=== PATIENT | male | born 1970 | race African-American/Black ===

== ENCOUNTER 2016-05-14 19:52 | Emergency (ER) | payer MEDICARE, MEDICAID ==
[2016-05-14] MEDS ORDERED: ACETAMINOPHEN 325 MG TABLET PO ONE (20:02)
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
[2016-05-14 21:09] LABS: ABSOLUTE EOSINOPHILS # (AUTO) 0.1 10^3/uL (0.0-0.6); ABSOLUTE LYMPHOCYTES (AUTO) 1.3 10^3/uL (0.5-4.7); ABSOLUTE MONOCYTES (AUTO) 0.2 10^3/uL (0.1-1.4); ABSOLUTE NEUT (AUTO) 1.7 10^3/uL (1.7-8.2); BASOPHILS % (AUTO) 0.8 % (0-2); EOSINOPHILS % (AUTO) 2.2 % (0-6); HEMATOCRIT 47.7 % (37.9-51.0); HEMOGLOBIN 15.9 g/dL (13.5-17.0); LYMPHOCYTES % (AUTO) 40.4 % (13-45); MEAN CORPUSCULAR HGB CONC 33.3 g/dL (32.0-36.0); MEAN CORPUSCULAR VOLUME 90 fl (80-97); MONOCYTES % (AUTO) 6.9 % (3-13); SEGMENTED NEUTROPHILS % (AUTO) 49.7 % (42-78); WHITE BLOOD COUNT 3.3 10^3/uL (4.0-10.5)
[2016-05-14 21:16] LABS: ALANINE AMINOTRANSFERASE 33 U/L (21-72); ALBUMIN 4.9 g/dL (3.5-5.0); ALKALINE PHOSPHATASE 89 U/L (38-126); ANION GAP 16 (5-19); ASPARTATE AMINO TRANSFERASE 34 U/L (17-59); BILIRUBIN,TOTAL 0.8 mg/dL (0.2-1.3); BLOOD UREA NITROGEN 20 mg/dL (7-20); CALCIUM 10.1 mg/dL (8.4-10.2); CARBON DIOXIDE 27 mmol/L (22-30); CHLORIDE 102 mmol/L (98-107); CREATININE RESULT 1.38 mg/dL (0.52-1.25); GLUCOSE 91 mg/dL (75-110); POTASSIUM 3.3 mmol/L (3.6-5.0); SODIUM 145.2 mmol/L (137-145); TOTAL PROTEIN 8.5 g/dL (6.3-8.2)
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
[2016-05-14] MEDS ORDERED: LIDOCAINE 1%/EPINEPHRINE INJ 20 ML VIAL INJ ONE (22:47)
[2016-05-14] MEDS ORDERED: SULFAMETHOXAZOLE/TRIMETHOPRIM 800-160 MG TABLET PO ONE (22:48)
[2016-05-15 00:23] VITALS: BP 107/76
== END 2016-05-15 00:20 | disposition home or self-care (01) ==
LOC: ER 19:52
PROC: 0HQEXZZ Repair Left Lower Arm Skin, External Approach (ICD-10-PCS; principal; 2016-05-14)
DX: S41.112A Laceration without foreign body of left upper arm, initial encounter (principal); D72.819 Decreased white blood cell count, unspecified; X99.1XXA Assault by knife, initial encounter; I10 Essential (primary) hypertension; E78.00 Pure hypercholesterolemia, unspecified; Z88.0 Allergy status to penicillin
CPT/HCPCS: 99283; 36415; 85025; 80053; 73080; 12002; A9270 ×2; J3490

== ENCOUNTER 2018-05-15 11:02 | Emergency (ER) | payer MEDICARE, MEDICAID ==
[2018-05-15 11:28] VITALS: BP 146/100
[2018-05-15] MEDS ORDERED: KETOROLAC TROMETHAMINE 60 MG/2 ML SDV IM ONE (13:13)
--- NOTE | 2018-05-15 13:17 | ER Document Report ---
ED Medical Screen (RME) - General Chief Complaint: Arm Pain Stated Complaint: NECK PAIN Time Seen by Provider: 05/15/18 13:12 Notes: Patient is a 48-year-old male presents to the emergency department complaining of left neck and left shoulder pain. Patient states he has had left neck pain intermittently for the last couple of months. States the pain hurts more when he rotates his head to the left or fully to the right. Patient states he is also noted some pain in his left shoulder. Patient's denying any trauma or injury to either neck or shoulder. States his shoulder is a pinching sensation when he tries to move it. Patient is unable to fully abduct his left shoulder secondary due to pain. Patient's denying any chest pain, tightness, trouble breathing. Past medical history: Hyperlipidemia, hypertension Medications: Zocor, Norvasc Allergies: Penicillin GENERAL: Alert, interacts well. No acute distress. NECK: Full range of motion. Supple. Trachea midline. Patient complains of pain in the left sternocleidomastoid muscle rotating down to his left trapezius muscle. EXTREMITIES: Moves all 4 extremities spontaneously. No edema, normal radial and dorsalis pedis pulses bilaterally. No cyanosis. Patient is unable to fully a bduct his left shoulder. Only able to abduct it to 90 degrees. Patient states there is a pinching sensation when he tries to fully abduct it. BACK: no cervical, thoracic, lumbar midline tenderness. No saddle anesthesia, normal distal neurovascular exam. I have greeted and performed a rapid initial assessment of this patient. A comprehensive ED assessment and evaluation of the patient, analysis of test results and completion of the medical decision making process will be conducted by additional ED providers. TRAVEL OUTSIDE OF THE [place] IN LAST 30 DAYS: No - Related Data Allergies/Adverse Reactions: Penicillins Allergy (Verified 05/15/18 12:46) Past Medical History - Social History Chew tobacco use (# tins/day): No Frequency of alcohol use: Occasional Drug Abuse: None - Past Medical History Cardiac Medical History: Reports: Hx Hypercholesterolemia, Hx Hypertension Pulmonary Medical History: Denies: Hx Tuberculosis Renal/ Medical History: Denies: Hx Peritoneal Dialysis Past Surgical History: Denies: Hx Pacemaker - Immunizations Hx Diphtheria, Pertussis, Tetanus Vaccination: No Physical Exam - Vital signs Vitals: Temp Pulse Resp BP Pulse Ox 98.3 F 50 L 18 146/100 H 97 05/15/18 11:27 05/15/18 11:27 05/15/18 11:27 05/15/18 11:27 05/15/18 11:27 Course - Vital Signs Vital signs: Temp Pulse Resp BP Pulse Ox 98.3 F 50 L 18 146/100 H 97 05/15/18 11:27 05/15/18 11:27 05/15/18 11:27 05/15/18 11:27 05/15/18 11:27
--- NOTE | 2018-05-15 13:20 | EKG REPORT ---
SEVERITY:- OTHERWISE NORMAL ECG - SINUS BRADYCARDIA ST ELEV, PROBABLE NORMAL EARLY REPOL PATTERN : Confirmed by: Benoit Davis MD 15-May-2018 13:19:41
--- NOTE | 2018-05-15 13:45 | RADIOLOGY REPORT (SQ) ---
EXAM DESCRIPTION: SHOULDER LEFT 2 OR MORE VIEWS COMPLETED DATE/TIME: 05/15/2018 1:35 pm REASON FOR STUDY: pain COMPARISON: None. NUMBER OF VIEWS: Three view. TECHNIQUE: Internal rotation, external rotation, and Y view images acquired of the left shoulder. LIMITATIONS: None. FINDINGS: MINERALIZATION: Normal. BONES: No acute fracture or dislocation. No worrisome bone lesions. No significant osteophytes. GLENOHUMERAL JOINT: No significant findings. ACROMIOCLAVICULAR JOINT: No large osteophytes. SOFT TISSUES: No calcifications. VISUALIZED RIBS, SPINE, AND LUNG: No other significant finding. OTHER: No other significant finding. IMPRESSION: NEGATIVE STUDY OF THE LEFT SHOULDER. NO EXPLANATION FOR PAIN. TECHNICAL DOCUMENTATION: JOB ID: [id number] [employer]- All Rights Reserved Reading location - IP/workstation name: [email or web address]
--- NOTE | 2018-05-15 14:35 | ER Document Report ---
HPI - HPI Patient complains to provider of: left shoulder pain Time Seen by Provider: 05/15/18 13:12 Pain Level: 3 Context: Patient is a 48-year-old male presents to the emergency department complaining of left neck and left shoulder pain. Patient states he has had left neck pain intermittently for the last couple of months. States the pain hurts more when he rotates his head to the left or fully to the right. Patient states he is also noted some pain in his left shoulder. Patient's denying any trauma or injury to either neck or shoulder. States his shoulder is a pinching sensation when he tries to move it. Patient is unable to fully abduct his left shoulder secondary due to pain. Patient's denying any chest pain, tightness, trouble breathing. Past medical history: Hyperlipidemia, hypertension Medications: Zocor, Norvasc Allergies: Penicillin - DERM Skin Color: Normal Past Medical History - Social History Smoking Status: Never Smoker Chew tobacco use (# tins/day): No Frequency of alcohol use: Occasional Drug Abuse: None Family History: Reviewed & Not Pertinent Patient has suicidal ideation: No Patient has homicidal ideation: No - Past Medical History Cardiac Medical History: Reports: Hx Hypercholesterolemia, Hx Hypertension Pulmonary Medical History: Denies: Hx Tuberculosis Renal/ Medical History: Denies: Hx Peritoneal Dialysis Past Surgical History: Denies: Hx Pacemaker - Immunizations Hx Diphtheria, Pertussis, Tetanus Vaccination: No Vertical Provider Document - CONSTITUTIONAL Agree With Documented VS: Yes Notes: GENERAL: Alert, interacts well. No acute distress. HEAD: Normocephalic, atraumatic. EYES: Pupils equal, round, and reactive to light. Extraocular movements intact. ENT: Oral mucosa moist, tongue midline. NECK: Full range of motion. Supple. Trachea midline. Patient complains of pain in the left sternocleidomastoid muscle rotating down to his left trapezius muscle. LUNGS: Clear to auscultation bilaterally, no wheezes, rales, or rhonchi. No respiratory distress. HEART: Regular rate and rhythm. No murmur ABDOMEN: Soft, non-tender. Non-distended. Bowel sounds present in all 4 quadran ts. EXTREMITIES: Moves all 4 extremities spontaneously. No edema, normal radial and dorsalis pedis pulses bilaterally. No cyanosis. Patient is unable to fully abduct his left shoulder. Only able to abduct it to 90 degrees. Patient states there is a pinching sensation when he tries to fully abduct it. BACK: no cervical, thoracic, lumbar midline tenderness. No saddle anesthesia, normal distal neurovascular exam. NEUROLOGICAL: Alert and oriented x3. Normal speech. cranial nerves II through XII grossly intact PSYCH: Normal affect, normal mood. SKIN: Warm, dry, normal turgor. - INFECTION CONTROL TRAVEL OUTSIDE OF THE [place] IN LAST 30 DAYS: No Course - Re-evaluation Re-evalutation: 05/15/18 14:32 Patient states after Toradol administration the pain in his left shoulder has somewhat eased. Patient now has more range of motion of the left shoulder. Discussed close follow-up with primary care provider and inevitably an MRI of the left shoulder. Patient voices understanding and is stable for discharge - Vital Signs Vital signs: Temp Pulse Resp BP Pulse Ox 98.3 F 50 L 18 146/100 H 97 05/15/18 11:27 05/15/18 11:27 05/15/18 11:27 05/15/18 11:27 05/15/18 11:27 Discharge - Discharge Clinical Impression: Neck pain on left side Left shoulder pain Qualifiers: Chronicity: acute Qualified Code(s): M25.512 - Pain in left shoulder Condition: Stable Disposition: HOME, SELF-CARE Instructions: Exercise Program for the Shoulder ([facility]), Shoulder Injury ([facility]) Additional Instructions: As we discussed you have been seen and treated in the emergency department for pain in your left shoulder. Your x-rays are negative at this time. Please make sure you follow-up with your primary care provider for an MRI of your shoulder. That will show if you have any injuries to your muscles, tendons, ligaments. Please take [id number] Tylenol or Motrin for your generalized pain. Please return to the emergency room for any other concerning symptoms. Forms: Return to Work Referrals: BIJU BAHENA MD [Primary Care Provider] - Follow up as needed
== END 2018-05-15 15:06 | disposition home or self-care (01) ==
LOC: ER 11:02
DX: M25.512 Pain in left shoulder (principal); M54.2 Cervicalgia; M79.18 Myalgia, other site; I10 Essential (primary) hypertension; E78.5 Hyperlipidemia, unspecified; Z79.899 Other long term (current) drug therapy; Z88.0 Allergy status to penicillin
CPT/HCPCS: 93005; 99283; 96372; 73030; 93010; J1885

== ENCOUNTER 2020-05-15 13:50 | Emergency (ER) | payer MEDICARE ==
[2020-05-15 13:57] VITALS: BP 140/93
[2020-05-15] MEDS ORDERED: KETOROLAC TROMETHAMINE 60 MG/2 ML SDV IM ONE (14:13)
--- NOTE | 2020-05-15 14:13 | ER Document Report ---
ED Extremity Problem, Upper - General Chief Complaint: Shoulder Pain Stated Complaint: RIGHT SHOULDER PAIN Time Seen by Provider: 05/15/20 14:13 Primary Care Provider: BIJU BAHENA MD [Primary Care Provider] - Follow up as needed Notes: CHIEF COMPLAINT: Chronic right shoulder pain HPI: 50-year-old male presenting with chronic right shoulder pain for many years, worse over the last month. No new trauma. No chest pain shortness of breath. Had an appointment today with a shoulder specialist but missed his appointment so now presents to the emergency department. Pain is typical of the pain he has every day with movement only ROS: See HPI - all other systems were reviewed and are otherwise negative Constitutional: no fever Integumentary: no rash Allergy: no hives Musculoskeletal: + extremity pain or swelling Neurological: no numbness/tingling, no weakness MEDICATIONS: I agree with the patient medications as charted by the RN. ALLERGIES: I agree with the allergies as charted by the RN. PAST MEDICAL HISTORY/PAST SURGICAL HISTORY: Reviewed and agree as charted by RN. SOCIAL HISTORY: Reviewed and agree as charted by RN. FAMILY HISTORY: No significant familial comorbid conditions directly related to patient complaint EXAM: Reviewed vital signs as charted by RN. CONSTITUTIONAL: Alert and oriented and responds appropriately to questions. Well-appearing; well-nourished HEAD: Normocephalic; atraumatic EYES: Conjunctivae clear, sclerae non-icteric ENT: normal nose; no rhinorrhea; moist mucous membranes NECK: Supple without meningismus; non-tender; no cervical lymphadenopathy, no masses CARD: symmetric distal pulses RESP: Normal chest excursion without splinting or tachypnea ABD/GI: non-distended BACK: The back appears normal EXT: Some limited abduction of the right arm at the shoulder secondary to pain. No bruising. No step-off. No visible edema or effusion. SKIN: Normal color for age and race; warm; dry; good turgor; no acute lesions noted NEURO: Moves all extremities equally; Motor and sensory function intact PSYCH: The patient's mood and manner are appropriate. Grooming and personal hygiene are appropriate. MDM: 50-year-old male chronic pain to the right shoulder missed his appointment with the shoulder specialist today. I will give him Toradol here in the ER, Voltaren at home, follow back up with the shoulder specialist and reschedule his appointment TRAVEL OUTSIDE OF THE [place] IN LAST 30 DAYS: No - Related Data Allergies/Adverse Reactions: Penicillins Allergy (Verified 05/15/20 14:11) Past Medical History - Social History Smoking Status: Unknown if Ever Smoked Family History: Reviewed & Not Pertinent - Past Medical History Cardiac Medical History: Reports: Hx Hypercholesterolemia, Hx Hypertension Pulmonary Medical History: Denies: Hx Tuberculosis Renal/ Medical History: Denies: Hx Peritoneal Dialysis Past Surgical History: Denies: Hx Pacemaker - Immunizations Hx Diphtheria, Pertussis, Tetanus Vaccination: No Physical Exam - Vital signs Vitals: Temp Pulse Resp BP Pulse Ox 97.6 F 66 16 140/93 H 96 05/15/20 13:55 05/15/20 13:55 05/15/20 13:55 05/15/20 13:55 05/15/20 13:55 Course - Vital Signs Vital signs: Temp Pulse Resp BP Pulse Ox 97.6 F 66 16 140/93 H 96 05/15/20 13:55 05/15/20 13:55 05/15/20 13:55 05/15/20 13:55 05/15/20 13:55 - Laboratory Results Critical Laboratory Results Reviewed: No Critical Results - Radiology Results Critical Radiology Results Reviewed: No Critical Results Discharge - Discharge Clinical Impression: Chronic shoulder pain Qualifiers: Laterality: right Qualified Code(s): M25.511 - Pain in right shoulder; G89.29 - Other chronic pain Condition: Stable Disposition: HOME, SELF-CARE Additional Instructions: Take Voltaren for pain. Ice to the shoulder twice daily for 5 to 10 minutes at a time do not place ice directly on the skin. Follow-up with your shoulder specialist next week as scheduled Prescriptions: Diclofenac Sodium [Voltaren 50 Mg Tablet.] 50 mg PO BID #20 tablet. Referrals: BIJU BAHENA MD [Primary Care Provider] - Follow up as needed
== END 2020-05-15 14:25 | disposition home or self-care (01) ==
LOC: ER 13:50
DX: G89.29 Other chronic pain (principal); M25.511 Pain in right shoulder; E78.00 Pure hypercholesterolemia, unspecified; I10 Essential (primary) hypertension; Z79.899 Other long term (current) drug therapy; Z88.0 Allergy status to penicillin
CPT/HCPCS: 99284; 96372; J1885